=== PATIENT | female | born 1955 | race Caucasian/White ===

== ENCOUNTER 2021-10-10 12:55 | Emergency (ER) | payer OTHER ==
[~2021-10-10] VITALS: Ht 157.5 cm; Wt 68.7 kg
[2021-10-10 13:03] VITALS: BP 171/77
--- NOTE | 2021-10-10 13:33 | NUR ---
66YO FEMALE PT BIB NIECE C/O SHARP 9/10 LOWER BACK PAIN XTODAY. PT STATES INITIAL DISCOMFORT STARTED SUNDAY AND HAS PAIN AT MOST UPON MOVEMENT. PT REPORTS R RIB WHEN HAVING SOB DUE TO PAIN. CURRENT O2 AT 97% ROOM AIR. PT STATES TAKING TYLENOL , HAD NO RELIEF. DENIES TAKING MEDICATION FOR PAIN TODAY. PT ABLE TO AMBULATE WITH DISCOMFORT. DENIES N/V/D OR CHEST PAIN. PT STATES ONSET OF BACK PAIN IS MAINLY DUE TO STRESS. PT AAOX4, IN VISIBLE DISTRESS WITH LABORED BREATHING. NIECE AT BEDSIDE HX:HTN , "PRE ASTHMA" ALLERGIES: SULFA
--- NOTE | 2021-10-10 13:35 | NUR ---
PT SWABBED FOR COVID([facility]). HANDED TO SINGING TEACHER JANEEN
--- NOTE | 2021-10-10 13:36 | NUR ---
LAB AT BEDSIDE
[2021-10-10] MEDS ORDERED: KETOROLAC 60 MG/2 ML VIAL IM ONE (13:40)
[2021-10-10] MEDS ORDERED: ACETAMINOPHEN EXTRA STRENGTH 500 MG TAB PO ONE (13:40)
--- NOTE | 2021-10-10 13:40 | NUR ---
XRAY AT BEDSIDE
[2021-10-10 13:48] LABS: BASOPHILS # (AUTO) 0.1 K/uL (0.00-0.22); BASOPHILS % (AUTO) 0.9 % (0.0-2.0); EOSINOPHILS # (AUTO) 0.1 K/uL (0-0.4); EOSINOPHILS % (AUTO) 1.5 % (0.0-4.0); HEMATOCRIT 38.6 % (36-48); HEMOGLOBIN 13.4 g/dL (12.0-16.0); LYMPHOCYTES # (AUTO) 2.3 K/uL (2.5-16.5); LYMPHOCYTES % (AUTO) 24.8 % (20.5-51.1); MEAN CORPUSCULAR HEMOGLOBIN 30 pg (27-31); MEAN CORPUSCULAR HGB CONC 35 g/dL (33-37); MEAN CORPUSCULAR VOLUME 87.6 fL (80-94); MONOCYTES # (AUTO) 0.9 K/uL (0.8-1.0); MONOCYTES % (AUTO) 9.6 % (1.7-9.3); NEUTROPHILS # (AUTO) 5.9 K/uL (1.8-7.7); NEUTROPHILS % (AUTO) 63.2 % (42.2-75.2); PLATELET COUNT (AUTO) 455 K/uL (140-450); RED CELL DISTRIBUTION WIDTH 12.5 % (11.6-13.7); WHITE BLOOD COUNT (AUTO) 9.3 K/uL (4.8-10.8)
[2021-10-10 14:10] LABS: ALBUMIN 3.7 g/dL (3.4-5.0); ANION GAP 9.9 (8-16); CARBON DIOXIDE 28.9 mmol/L (21-32); CREATININE 0.5 mg/dL (0.6-1.3); POTASSIUM 3.8 mmol/L (3.5-5.1); TOTAL BILIRUBIN 0.3 mg/dL (0.0-1.0)
[2021-10-10] MEDS ORDERED: ACET-10509 PO ×2 (14:24→14:55)
[2021-10-10] MEDS ORDERED: GABA300C PO ×2 (14:24→14:55)
--- NOTE | 2021-10-10 15:56 | NUR ---
Patient discharged with v/s stable. Written and verbal after care instructions FOR [facility] given and explained. Patient alert, oriented and verbalized understanding of instructions. Ambulatory with steady gait. All questions addressed prior to discharge. ID band removed. Patient advised to follow up with PMD. Rx of GABPENTIN given. Opportunity to ask questions provided and answered.
[2021-10-10 15:57] VITALS: BP 131/63
--- NOTE | 2021-10-10 15:57 | NUR ---
The patient's care was reviewed and supervised by Yanely Barron RN.
== END 2021-10-10 15:57 | disposition home or self-care (01) ==
LOC: MED 12:55
DX: M54.31 Sciatica, right side (principal); Z20.822 Contact with and (suspected) exposure to COVID-19; R07.9 Chest pain, unspecified; I10 Essential (primary) hypertension; Z88.2 Allergy status to sulfonamides
CPT/HCPCS: 36415; 71045; 80053; 83880; 84484; 85025; 87426; 93005; 96372; 99285; J1885; Q0092